=== PATIENT | male | born 1960 | race Caucasian/White ===

== ENCOUNTER 2017-01-26 22:13 | Emergency (ER) | payer OTHER | END 2017-01-26 23:21 | disposition home or self-care (01) | LOC: ER 22:13 | DX: R42 Dizziness and giddiness (principal); I10 Essential (primary) hypertension; Z86.73 Personal history of transient ischemic attack (TIA), and cerebral infarction without residual deficits; Z79.899 Other long term (current) drug therapy; Z79.82 Long term (current) use of aspirin | CPT/HCPCS: 99283 ==